=== PATIENT | male | born 1975 | race Caucasian/White ===

== ENCOUNTER 2024-05-17 07:29 | Day surgery (SDC) | payer BC ==
[2024-05-14 12:10] VITALS: BP 128/78; PULSE 52; RESP 18; TEMP 98.4
[2024-05-14 12:18] LABS: BASOPHILS # (AUTO) 0.06 K/uL (0.00-0.20); BASOPHILS % (AUTO) 0.9 % (0.0-5.0); EOSINOPHILS # (AUTO) 0.25 K/uL (0.00-0.70); EOSINOPHILS % (AUTO) 3.6 % (0.0-8.0); IMMATURE GRANULOCYTE ABSOLUTE 0.01 K/uL (0-1); LYMPHOCYTES # (AUTO) 2.3 K/uL (1.0-4.8); LYMPHOCYTES % (AUTO) 33.6 % (21.0-51.0); MEAN CORPUSCULAR HEMOGLOBIN 30.1 pg (27.0-33.0); MEAN CORPUSCULAR HGB CONC 33.3 g/dL (32.0-36.0); MEAN CORPUSCULAR VOLUME 90.4 fL (79-99); MONOCYTES # (AUTO) 0.7 K/uL (0.1-1.0); MONOCYTES % (AUTO) 9.8 % (3.0-13.0); NEUTROPHILS # (AUTO) 3.6 K/uL (1.8-7.7); PLATELET COUNT (AUTO) 227 K/uL (130-400); RED BLOOD CELL COUNT(AUTO) 5.09 MIL/uL (4.50-6.20); WHITE BLOOD COUNT (AUTO) 6.9 K/uL (4.8-10.8)
[2024-05-14 12:26] LABS: CREATININE 0.9 mg/dL (0.5-1.3); POTASSIUM 4.2 mmol/L (3.5-5.1)
[2024-05-17] VITALS (14 sets, daily range): BP systolic 101–128; BP diastolic 60–82; PULSE 50–62; RESP 13–18; TEMP 97–97.5
[~2024-05-17] VITALS: Ht 170.2 cm; Wt 69.9 kg
[2024-05-17] MEDS ORDERED: TADA5TAB13 PO (08:04)
[2024-05-17] MEDS ORDERED: MIDAZOLAM HCL 1 MG/ML 2ML VIAL ONE (08:52)
[2024-05-17] MEDS ORDERED: LIDOCAINE PF 100MG/5ML (2%) SYRINGE 5ML ONE (08:53)
[2024-05-17] MEDS ORDERED: proPOFol 10 MG/ML 20ML VIAL IV ONE (08:53)
[2024-05-17] MEDS ORDERED: FENTanyl CITRate PF 50 MCG/1 ML 2ML VIAL ONE ×2 (08:53→09:24)
[2024-05-17] MEDS ORDERED: dexaMETHasone SOD PHOSPHATE 10MG/ML 1ML VIAL ONE (09:10)
[2024-05-17] MEDS ORDERED: ondanSETRON 4MG INJ ONE (09:10)
[2024-05-17] MEDS: cefTRIAXone 1G VIAL ONE (09:27)
[2024-05-17] MEDS: LACTATED RINGERS 1000ML 1,000 ML IV ONE (09:27)
[2024-05-17] MEDS ORDERED: ketOROlac 30MG VIAL (30MG/ML) ONE (09:45)
== END 2024-05-17 11:40 | disposition home or self-care (01) ==
LOC: DAH 07:29
PROVIDERS: ATTEND Urology
DX: N20.0 Calculus of kidney (principal); R31.9 Hematuria, unspecified; Z82.3 Family history of stroke; Z79.899 Other long term (current) drug therapy
CPT/HCPCS: 80048; 85025; 36415; 50590; A6260; A4663; J7120 ×2; J3010 ×2; J1100; J2003; J0696; J2250; J2704; J2405; J1885; A6204; A4215; A4223; A4222; A4221; A4600; A4510; J3490